=== PATIENT | male | born 1930 | race Caucasian/White ===

== ENCOUNTER 2017-02-18 16:17 | Emergency (ER) | payer MEDICARE ==
[~2017-02-18] VITALS: Ht 172.7 cm; Wt 93.0 kg
[~2017-02-18 16:17] MED LIST: ASPI81TA44 PO; GLIM2TAB2 PO; INSU100I13 SQ; LISI40TA PO; METF500T4 PO; OXYB5TAB7 PO; SOLI5TAB PO; TAMS0.4C2 PO
[2017-02-18] MEDS ORDERED: LIDOCAINE 1% / SOD BICARB 8.4% 20 ML VIAL. IJ ONE (17:30)
[2017-02-18] MEDS ORDERED: DIPHTH,PERTUSS(ACELL),TET TOX 0.5 ML DISP.SYRIN. VAX IM ONE (17:30)
--- NOTE | 2017-02-18 17:30 | PHYS DOC ---
Past Medical History Past Medical History: Diabetes-Type II, High Cholesterol, Hypertension Past Surgical History: Other Additional Past Surgical Histo: shoulder and knee replacements Alcohol Use: None Drug Use: None Adult General Chief Complaint Chief Complaint: LACERATION/AVULSION [facility] HPI Patient is a 86 year old male presents to the emergency department stating that he was carrying his groceries and got his feet up when he fell. He states that he hit the floor. He has approximately 2 cm laceration on his left cheek area. Bleeding is currently controlled. He denies any head injury other than the facial injury. He denies any neck pain or back pain. He denies any loss of consciousness. He is unsure when his last tetanus immunization occurred. Patient does state that he takes aspirin on a daily basis. Review of Systems Review of Systems Constitutional: Denies fever or chills [] Eyes: Denies change in visual acuity, redness, or eye pain [] HENT: Denies nasal congestion or sore throat [] Respiratory: Denies cough or shortness of breath [] Cardiovascular: No additional information not addressed in HPI [] GI: Denies abdominal pain, nausea, vomiting, bloody stools or diarrhea [] : Denies dysuria or hematuria [] Musculoskeletal: Denies back pain or joint pain [] Integument: Denies rash or skin lesions. Laceration to the left cheek Neurologic: Denies headache, focal weakness or sensory changes [] Endocrine: Denies polyuria or polydipsia [] Current Medications Current Medications Current Medications Medications (Trade) Dose Ordered Sig/Josie Start Time Stop Time Status Last Admin Dose Admin Diphtheria/ Tetanus/Acell Pertussis (Boostrix) 0.5 ml ONCE ONCE 02/18/17 17:30 02/18/17 17:31 DC 02/18/17 17:40 0.5 ML Lidocaine/Sodium Bicarbonate (Buffered Lidocaine 1%) 20 ml 1X ONCE 02/18/17 17:30 02/18/17 17:31 DC 02/18/17 17:38 20 ML Allergies Allergies Allergies Coded Allergies Type Severity Reaction Last Updated Verified Penicillins Allergy Severe rash 12/20/13 Yes morphine Allergy Severe vomiting 12/20/13 Yes Physical Exam Physical Exam Constitutional: Well developed, well nourished, no acute distress, non-toxic appearance. [] HENT: Normocephalic, atraumatic, bilateral external ears normal, oropharynx moist, no oral exudates, nose normal. [] Eyes: PERRLA, EOMI, conjunctiva normal, no discharge. [] Neck: Normal range of motion, no tenderness, supple, no stridor. [] Cardiovascular:Heart rate regular rhythm, no murmur [] Lungs & Thorax: Bilateral breath sounds clear to auscultation [] Skin: Warm, dry, no erythema, no rash. Patient with a 2 cm laceration noted to the left cheek area bleeding is currently controlled. Back: No tenderness Extremities: No cervical spine tenderness, no step-offs, no deformities and no crepitus noted. No cyanosis, no clubbing, ROM intact, no edema. [] Neurologic: Alert and oriented X 3, normal motor function, normal sensory function, no focal deficits noted. [] Psychologic: Affect normal, judgement normal, mood normal. [] Current Patient Data Vital Signs Vital Signs Date Time Temp Pulse Resp B/P (MAP) Pulse Ox O2 Delivery O2 Flow Rate FiO2 02/18/17 16:52 98.5 98 20 129/64 (85) 97 Room Air 98.5 EKG EKG [] Radiology/Procedures Radiology/Procedures [[facility] [address] [place] [address] IMAGING REPORT Signed PATIENT: HILDA WHEELER ACCOUNT: [id number] : 1930 LOCATION: ER AGE: 86 SEX: M EXAM STATUS: REG ER ORD. PHYSICIAN: ELAINE MONTGOMERY APRN REASON: fell hit face on the ground PROCEDURE: CT HEAD AND MAXILLOFACIAL WO CT HEAD AND MAXILLOFACIAL WO dated 02/18/2017 5:26 PM Indication: Fall, face hit ground Comparison: Correlation is made with November 25, 2015 MRI brain exam Technique: CT imaging was performed of the[head and maxillofacial region], multiplanar reconstruction images submitted. One or more of the following individualized dose reduction techniques were utilized for this examination: 1. Automated exposure control 2. Adjustment of the mA and/or kV according to patient size 3. 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 No acute intracranial hemorrhage is identified. There is similar third and lateral ventriculomegaly although there is generalized supratentorial atrophy. There is now midline shift. Garcia-white differentiation the major vascular territories is maintained. There is atherosclerotic calcification of the carotid siphons bilaterally. No acute calvarial abnormality is identified. Mastoid air cells and visualized paranasal sinuses are aerated. Maxillofacial CT: There is multilevel cervical facet degenerative changes as well as spondylosis and degenerative disc disease. There is atherosclerotic calcification of the visualized carotid arteries in the neck bilaterally. There are no air-fluid levels of the sinuses, paranasal sinuses overall aerated. It should be noted the most anterior aspect of the nasal bones are not entirely included on reconstruction images, no acute fracture seen at this location on CT had. No acute maxillofacial fracture is identified. IMPRESSION: 1. No acute intracranial abnormality is identified. There is again left frontal region arachnoid cyst. 2. No acute maxillofacial fracture is identified. Electronically signed by: Matilda Washington MD (02/18/2017 6:07 PM) DICTATED and SIGNED BY: MATILDA WASHINGTON MD DATE: 02/18/171755 CC: ELAINE MONTGOMERY APRN; NON,STAFF; [facility] ~ ] Course & Med Decision Making Course & Med Decision Making Pertinent Labs and Imaging studies reviewed. (See chart for details) 6 interrupted sutures was placed into the left cheek after lidocaine and Betadine was used to clean the site. Patient was provided with discharge instructions treatment regimens and follow-up recommendations. Recommended ice packs to the area on 20 minutes off 20 minutes several times a day. Recommendations for cleaning the site with soap and water and apply antibiotic ointment to the area ice today. Patient was instructed to watch for signs and symptoms of infection redness, warmth, tenderness or any yellow/greenish drainage of a come from the site physician occur follow-up to primary care physician immediately. Patient was provided with signs and symptoms to return back to emergency department. He agrees with discharge instructions treatment regimens and follow-up recommendations. [] Dragon Disclaimer Dragon Disclaimer This electronic medical record was generated, in whole or in part, using a voice recognition dictation system. Departure Departure Impression: Primary Impression: Laceration of face Disposition: HOME, SELF-CARE Condition: STABLE Referrals: [facility] (PCP) Patient Instructions: Facial Laceration, [id number], Sutured Wound Care, Easy -to-Read Additional Instructions: Activity as tolerated. Tylenol for pain and discomfort. Ice packs on the area on 20 minutes off 20 minutes several times a day. This will help with pain as well as swelling. Keep the area clean and dry. Clean the site twice a day with soap and water and apply antibiotic ointment to the area. Watch for signs and symptoms of infection: Redness, warmth, tenderness or any yellow/greenish drainage of a come from the site. If this should develop you need follow-up to primary care physician immediately. Follow-up through primary care physician in the next 5-7 days for suture removal. Return back to emergency prior signs symptoms of become worse. Laceration/Wound Repair Laceration/Wound Repair : Wound Location: face Wound's Depth, Shape: superficial Wound Length (cm): 2 Wound Explored: clean Betadine Prep?: Yes Anesthesia: 1% Lidocaine Volume Anesthetic (ccs): 4 Wound Debrided: minimal Wound Repaired With: sutures Suture Size/Type: 6:0 Number of Sutures: 6 ELAINE MONTGOMERY PSYCH ASSISTANT February 18, 2017 17:30
--- NOTE | 2017-02-18 18:10 | RAD ---
CT HEAD AND MAXILLOFACIAL WO dated 02/18/2017 5:26 PM Indication: Fall, face hit ground Comparison: Correlation is made with November 25, 2015 MRI brain exam Technique: CT imaging was performed of the[head and maxillofacial region], multiplanar reconstruction images submitted. One or more of the following individualized dose reduction techniques were utilized for this examination: 1. Automated exposure control 2. Adjustment of the mA and/or kV according to patient size 3. 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 No acute intracranial hemorrhage is identified. There is similar third and lateral ventriculomegaly although there is generalized supratentorial atrophy. There is now midline shift. Garcia-white differentiation the major vascular territories is maintained. There is atherosclerotic calcification of the carotid siphons bilaterally. No acute calvarial abnormality is identified. Mastoid air cells and visualized paranasal sinuses are aerated. Maxillofacial CT: There is multilevel cervical facet degenerative changes as well as spondylosis and degenerative disc disease. There is atherosclerotic calcification of the visualized carotid arteries in the neck bilaterally. There are no air-fluid levels of the sinuses, paranasal sinuses overall aerated. It should be noted the most anterior aspect of the nasal bones are not entirely included on reconstruction images, no acute fracture seen at this location on CT had. No acute maxillofacial fracture is identified. IMPRESSION: 1. No acute intracranial abnormality is identified. There is again left frontal region arachnoid cyst. 2. No acute maxillofacial fracture is identified. Electronically signed by: Malcom Rey MD (02/18/2017 6:07 PM)
[2017-02-18 19:07] VITALS: BP 119/63
== END 2017-02-18 19:08 | disposition home or self-care (01) ==
LOC: ER 16:17
DX: S01.412A Laceration without foreign body of left cheek and temporomandibular area, initial encounter (principal); E11.9 Type 2 diabetes mellitus without complications; E78.00 Pure hypercholesterolemia, unspecified; I10 Essential (primary) hypertension; Z88.0 Allergy status to penicillin; Z88.5 Allergy status to narcotic agent; W01.198A Fall on same level from slipping, tripping and stumbling with subsequent striking against other object, initial encounter; Y93.89 Activity, other specified; Y92.89 Other specified places as the place of occurrence of the external cause; Y99.8 Other external cause status
CPT/HCPCS: 12011; 70450; 70486; 90471; 90715; 99284-25

== ENCOUNTER 2017-02-22 13:40 | Emergency (ER) | payer MEDICARE ==
[~2017-02-22] VITALS: Ht 172.7 cm; Wt 95.3 kg
[2017-02-22 14:19] VITALS: BP 142/73
--- NOTE | 2017-02-22 14:25 | PHYS DOC ---
Past Medical History Past Medical History: Diabetes-Type II, High Cholesterol, Hypertension Past Surgical History: Other Additional Past Surgical Histo: SHOULDER AND KNEE REPLACEMENT Alcohol Use: None Drug Use: None Adult General Chief Complaint Chief Complaint: SUTURE/STAPLE REMOVAL HPI HPI Patient is a 86 year old male with history of hypertension high cholesterol diabetes type 2 who presents today for suture removal for laceration on the left cheek that was closed 4 days ago. Patient denies any issues with the wound healing. Review of Systems Review of Systems Constitutional: Denies fever or chills [] Eyes: Denies change in visual acuity, redness, or eye pain [] Musculoskeletal: Denies back pain or joint pain [] Integument: Left cheek suture removal Neurologic: Denies headache, focal weakness or sensory changes [] Endocrine: Denies polyuria or polydipsia [] Allergies Allergies Allergies Coded Allergies Type Severity Reaction Last Updated Verified Penicillins Allergy Severe rash 12/20/13 Yes morphine Allergy Severe vomiting 12/20/13 Yes Physical Exam Physical Exam Constitutional: Well developed, well nourished, no acute distress, non-toxic appearance. [] HENT: Normocephalic, atraumatic, bilateral external ears normal, oropharynx moist, no oral exudates, nose normal. [] Eyes: PERRLA, EOMI, conjunctiva normal, no discharge. [] Periorbital ecchymosis noted on the left eye. Skin: Left cheek with a laceration that is well approximated. Laceration is 6 interrupted sutures. No signs of infection on the laceration site. [] Back: No tenderness, no CVA tenderness. [] Extremities: No tenderness, no cyanosis, no clubbing, ROM intact, no edema. [] Neurologic: Alert and oriented X 3, normal motor function, normal sensory function, no focal deficits noted. [] Psychologic: Affect normal, judgement normal, mood normal. [] Current Patient Data Vital Signs Vital Signs Date Time Temp Pulse Resp B/P (MAP) Pulse Ox O2 Delivery O2 Flow Rate FiO2 02/22/17 14:19 97.9 98 20 98 Room Air 97.9 EKG EKG [] Radiology/Procedures Radiology/Procedures [] Course & Med Decision Making Course & Med Decision Making Pertinent Labs and Imaging studies reviewed. (See chart for details) Patient is in the ED for suture removal for laceration that was closed 4 days ago on the left cheek. Six interrupted sutures were removed by the RN. The laceration site is well approximated. No signs of infection. Provided return precautions. Discharged in stable condition. Grzegorz Disclaimer Dragmargot Disclaimer This electronic medical record was generated, in whole or in part, using a voice recognition dictation system. Departure Departure Impression: Primary Impression: Visit for suture removal Disposition: HOME, SELF-CARE Condition: STABLE Referrals: [facility] (PCP) Follow-up with your doctor in one week as needed Patient Instructions: Suture Removal-Brief Additional Instructions: We removed stitches from your cheek. Keep the area clean and dry. Apply Neosporin to the area for one week. Monitor the area to make sure it does not get infected.Signs of infection includes increased redness warmth or odor drainage from the area. If it appears infected come back to the ED or follow-up with your doctor. GEGE MILLER APRN Feb 22, 2017 14:25
== END 2017-02-22 14:30 | disposition home or self-care (01) ==
LOC: ER 13:40
DX: S01.412D Laceration without foreign body of left cheek and temporomandibular area, subsequent encounter (principal); E11.9 Type 2 diabetes mellitus without complications; E78.00 Pure hypercholesterolemia, unspecified; I10 Essential (primary) hypertension; Z96.659 Presence of unspecified artificial knee joint; Z88.5 Allergy status to narcotic agent; Z88.0 Allergy status to penicillin; X58.XXXD Exposure to other specified factors, subsequent encounter; Y92.89 Other specified places as the place of occurrence of the external cause; Y99.8 Other external cause status
CPT/HCPCS: 99281

== ENCOUNTER 2018-08-21 10:19 | Emergency (ER) | payer MEDICARE ==
[~2018-08-21] VITALS: Ht 172.7 cm; Wt 80.3 kg
[~2018-08-21 10:19] MED LIST changes: -ASPI81TA44 PO; +ASPI81TA59 PO; +LISI-130 PO; -LISI40TA PO; +METF500T16 PO; -METF500T4 PO; -SOLI5TAB PO; +SOLI5TAB2 PO
--- NOTE | 2018-08-21 11:24 | PHYS DOC ---
Past Medical History Past Medical History: Diabetes-Type II, High Cholesterol, Hypertension Past Surgical History: Other Additional Past Surgical Histo: SHOULDER AND KNEE REPLACEMENT Alcohol Use: None Drug Use: None Adult General Chief Complaint Chief Complaint: THUMB HPI HPI Patient is a 88 year old [f__sex] who presents with [] Review of Systems Review of Systems Constitutional: Denies fever or chills [] Eyes: Denies change in visual acuity, redness, or eye pain [] HENT: Denies nasal congestion or sore throat [] Respiratory: Denies cough or shortness of breath [] Cardiovascular: No additional information not addressed in HPI [] GI: Denies abdominal pain, nausea, vomiting, bloody stools or diarrhea [] : Denies dysuria or hematuria [] Musculoskeletal: Denies back pain or joint pain [] Integument: Denies rash or skin lesions [] Neurologic: Denies headache, focal weakness or sensory changes [] Endocrine: Denies polyuria or polydipsia [] All other systems were reviewed and found to be within normal limits, except as documented in this note. Allergies Allergies Allergies Coded Allergies Type Severity Reaction Last Updated Verified Penicillins Allergy Severe rash 12/20/13 Yes morphine Allergy Severe vomiting 12/20/13 Yes Physical Exam Physical Exam Constitutional: Well developed, well nourished, no acute distress, non-toxic appearance. [] HENT: Normocephalic, atraumatic, bilateral external ears normal, oropharynx moist, no oral exudates, nose normal. [] Eyes: PERRLA, EOMI, conjunctiva normal, no discharge. [] Neck: Normal range of motion, no tenderness, supple, no stridor. [] Cardiovascular:Heart rate regular rhythm, no murmur [] Lungs & Thorax: Bilateral breath sounds clear to auscultation [] Abdomen: Bowel sounds normal, soft, no tenderness, no masses, no pulsatile masses. [] Skin: Warm, dry, no erythema, no rash. [] Back: No tenderness, no CVA tenderness. [] Extremities: No tenderness, no cyanosis, no clubbing, ROM intact, no edema. [] Neurologic: Alert and oriented X 3, normal motor function, normal sensory function, no focal deficits noted. [] Psychologic: Affect normal, judgement normal, mood normal. [] Current Patient Data Vital Signs Vital Signs Date Time Temp Pulse Resp B/P (MAP) Pulse Ox O2 Delivery O2 Flow Rate FiO2 08/21/18 10:30 97.9 91 20 147/82 (103) 98 Room Air 97.9 EKG EKG [] Radiology/Procedures Radiology/Procedures Paronychia drainage at 1135 Surgical scrub brush used to cleanse lt thumb at distal tip/nailbed 18 g needle used lateral side of nailbed and had immediate drainage of yellow/ purulent drainage- no bleeding. Wound cx obtained. Course & Med Decision Making Course & Med Decision Making Pertinent Labs and Imaging studies reviewed. (See chart for details) [] Dragon Disclaimer Dragon Disclaimer This electronic medical record was generated, in whole or in part, using a voice recognition dictation system. Departure Departure Impression: Primary Impression: Paronychia of finger of left hand Additional Impression: Cellulitis Disposition: 01 HOME, SELF-CARE Condition: STABLE Referrals: [facility] (PCP) Patient Instructions: Cellulitis, Paronychia Additional Instructions: Continue your prescribed Keflex prescription as directed. Warm epsom salt soaks 3-4 times a day for 20-30 minutes. Monitor your blood sugars closely. Call your [employer] and see if they will evaluate you for your nail condition if not then ask who they recommend. [facility] has hand specialist on staff- [phone] Problem Qualifiers FAISAL VALLE APRN Aug 21, 2018 11:24
== END 2018-08-21 11:59 | disposition home or self-care (01) ==
LOC: ER 10:19
DX: L03.012 Cellulitis of left finger (principal); E78.00 Pure hypercholesterolemia, unspecified; I10 Essential (primary) hypertension; E11.9 Type 2 diabetes mellitus without complications; Z88.0 Allergy status to penicillin; Z88.5 Allergy status to narcotic agent
CPT/HCPCS: 10060; 87071; 87075; 99283-25

== ENCOUNTER 2019-08-11 11:24 | Emergency (ER) | payer MEDICARE ==
[~2019-08-11] VITALS: Ht 175.3 cm; Wt 77.1 kg
[~2019-08-11 11:24] MED LIST changes: -GLIM2TAB2 PO; +GLIM2TAB3 PO; +OXYB5TAB10 PO; -OXYB5TAB7 PO
[2019-08-11 11:55] VITALS: BP 126/71
--- NOTE | 2019-08-11 12:22 | PHYS DOC ---
Past Medical History Past Medical History: Diabetes-Type II, GERD, High Cholesterol, Hypertension (ELAINE BRADSHAW APRN) Past Surgical History: Other Additional Past Surgical Histo: SHOULDER AND KNEE REPLACEMENT; bilateral eyelid (ELAINE BRADSHAW APRN) Alcohol Use: None Drug Use: None (ELAINE BRADSHAW APRN) Adult General Chief Complaint Chief Complaint: WRIST PAIN HPI HPI Patient is a 89 year old male who presents with Saturday began having dorsal right wrist tenderness. Patient's states he has not been wanting to use the right arm at all. Patient's states that on Saturday at a procedure done where he had to have sedation and she cannot remember if that is where the IV was or not. The patient states he is not sure but he states he may have been in that hand. Patient states it is feeling much better today. Patient denies any pain at this time. (ELAINE BRADSHAW APRN) Review of Systems Review of Systems Musculoskeletal: Denies back pain. Right wrist joint pain [] All other systems were reviewed and found to be within normal limits, except as documented in this note. (ELAINE BRADSHAW APRN) Allergies Allergies Allergies Coded Allergies Type Severity Reaction Last Updated Verified Penicillins Allergy Severe rash 12/20/13 Yes morphine Allergy Severe vomiting 12/20/13 Yes (ADRIANA YU DO) Physical Exam Physical Exam Constitutional: Well developed, well nourished, no acute distress, non-toxic appearance. [] Extremities: No tenderness, no cyanosis, no clubbing, ROM intact, Right dorsal wrist edema, can not make a tight fist. [] Neurologic: Alert and oriented X 3, normal motor function, normal sensory function, no focal deficits noted. [] Psychologic: Affect normal, judgement normal, mood normal. [] (ELAINE BRADSHAW APRN) Current Patient Data Vital Signs Vital Signs Date Time Temp Pulse Resp B/P (MAP) Pulse Ox O2 Delivery O2 Flow Rate FiO2 08/11/19 11:55 98.2 89 16 126/71 (89) 98 Room Air 98.2 (ADRIANA YU DO) EKG EKG [] (ELAINE BRADSHAW APRN) Radiology/Procedures Radiology/Procedures [] (ELAINE BRADSHAW APRN) Impressions: [facility] [address] [place] [address] IMAGING REPORT Signed PATIENT: HILDA WHEELER ACCOUNT: [id number] : 1930 LOCATION: ER AGE: 89 SEX: M EXAM STATUS: REG ER ORD. PHYSICIAN: ELAINE BRADSHAW APRN REASON: swelling AND PAIN RT WRIST, NO TRAUMA PROCEDURE: WRIST 3V RIGHT WRIST 3V RIGHT 08/11/2019 12:10 PM INDICATION: Swelling and pain in the right wrist COMPARISON: None available. TECHNIQUE: 3 views of the right wrist are provided. FINDINGS/ IMPRESSION: 1. There is no acute fracture or dislocation. 2. Joint space narrowing involving the scaphoid trapezial joint as well as the first carpometacarpal joint with marginal osteophytosis and subcortical cystic change. Findings are compatible with moderate osteoarthrosis. 3. There is either a subcortical cyst or intraosseous ganglion involving the capitate. 4. Joint space narrowing involving the radiocarpal joint with subcortical sclerosis compatible with mild to moderate loss or stenosis. 5. No significant soft tissue swelling or radiopaque foreign density. Electronically signed by: Rachel Mera MD (08/11/2019 12:42 PM) [id number] DICTATED and SIGNED BY: RACHEL MERA MD DATE: 08/11/19 124 (ELAINE BRADSHAW APRN) Course & Med Decision Making Course & Med Decision Making Alert and oriented. Speaks in full clear sentences. Patient's dorsal wrist is 1+ swelling but is nontender. Patient does have range of motion in his wrist. Patient states that when he makes a fist he cannot make a tight fist. Denies any numbness or tingling. Skin is pink warm and dry. Radial pulses are present. Cap refill less than 3 seconds. I told the patient and family that if he did indeed have a IV there, he could have had a blown vein or bruising from where the IV was. There is no deformity or laxity in the joint. There is no bruising over the area or skin color change. Xray shows FINDINGS/ IMPRESSION: 1. There is no acute fracture or dislocation. 2. Joint space narrowing involving the scaphoid trapezial joint as well as the first carpometacarpal joint with marginal osteophytosis and subcortical cystic change. Findings are compatible with moderate osteoarthrosis. 3. There is either a subcortical cyst or intraosseous ganglion involving the capitate. 4. Joint space narrowing involving the radiocarpal joint with subcortical sclerosis compatible with mild to moderate loss or stenosis. 5. No significant soft tissue swelling or radiopaque foreign density. Patient placed in a wrist splint and follow-up with primary care doctor. (ELAINE BRADSHAW APRN) Dragon Disclaimer Dragon Disclaimer This electronic medical record was generated, in whole or in part, using a voice recognition dictation system. (ELAINE BRADSHAW APRN) Splinting Splinting : Location: Right wrist Pre-Made Type: [place] wrist splint Pre-Proc Neuro Vasc Exam: normal Post-Proc Neuro Vasc Exam: normal, unchanged from pre-exam (ADRIANA YU DO) Departure Departure Impression: Primary Impression: Ganglion Additional Impression: Osteoarthritis Disposition: HOME, SELF-CARE Condition: STABLE Referrals: [facility] (PCP) Patient Instructions: Arthritis, Degenerative-Brief, Ganglion Cyst Additional Instructions: Follow-up with primary care provider as soon as possible. Attending Signature Attending Signature I have reviewed the PA/BUSINESS INSTRUCTOR's note and plan of care. I was available for consul tation as needed during the patient's visit in the emergency department. I agree with the clinical impression, plan, and disposition. 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
--- NOTE | 2019-08-11 12:45 | RAD ---
WRIST 3V RIGHT 08/11/2019 12:10 PM INDICATION: Swelling and pain in the right wrist COMPARISON: None available. TECHNIQUE: 3 views of the right wrist are provided. FINDINGS/ IMPRESSION: 1. There is no acute fracture or dislocation. 2. Joint space narrowing involving the scaphoid trapezial joint as well as the first carpometacarpal joint with marginal osteophytosis and subcortical cystic change. Findings are compatible with moderate osteoarthrosis. 3. There is either a subcortical cyst or intraosseous ganglion involving the capitate. 4. Joint space narrowing involving the radiocarpal joint with subcortical sclerosis compatible with mild to moderate loss or stenosis. 5. No significant soft tissue swelling or radiopaque foreign density. Electronically signed by: Angelique Daley MD (08/11/2019 12:42 PM) [id number]
== END 2019-08-11 13:02 | disposition home or self-care (01) ==
LOC: ER 11:24
DX: M67.431 Ganglion, right wrist (principal); M19.031 Primary osteoarthritis, right wrist; E11.9 Type 2 diabetes mellitus without complications; K21.9 Gastro-esophageal reflux disease without esophagitis; E78.00 Pure hypercholesterolemia, unspecified; I10 Essential (primary) hypertension; Z88.0 Allergy status to penicillin; Z88.5 Allergy status to narcotic agent
CPT/HCPCS: 29125; 73110; 99284